=== PATIENT | female | born 1960 | race Caucasian/White ===

== ENCOUNTER 2016-03-31 08:14 | Inpatient (IN) | payer OTHER ==
[~2016-03-31] VITALS: Ht 160 cm; Wt 69.2 kg
[~2016-03-31 08:14] MED LIST: ASPIRIN81 M2 PO; MULTIPLE VITAM1 EACH PO; NEXIUM 24HR20 M1 PO; NEXIUM20 MG PO; ZOLOFT50 MG PO
[2016-03-31 09:17] VITALS: BP 124/80
[2016-03-31 14:52] LABS: HEMATOCRIT 38.4 % (36.0-46.0); MCH 32.6 PG (29.0-34.0); MCHC 33.3 G/DL (30.0-36.0); MCV 97.7 FL (83-99); MEAN PLAT.VOLUME 11.3 uM^3 (9.5-12.4); PLATELET COUNT 79 K/uL (156-360); RBC DIS.WIDTH-CV 14.4 % (11.8-14.6); RBC DIS.WIDTH-SD 51.3 % (39-53); RED BLOOD COUNT 3.93 M/uL (3.80-5.20); WHITE BLOOD COUNT 6.4 K/uL (4.1-10.2)
[2016-03-31 16:05] VITALS: BP 120/70
[2016-03-31 16:45] VITALS: BP 129/70
[2016-03-31 19:00] VITALS: BP 159/71
[2016-04-01] VITALS: BP 149/71
[2016-04-01 04:00] VITALS: BP 137/72
[2016-04-01 06:53] LABS: HEMATOCRIT 39.1 % (36.0-46.0); MCV 98.7 FL (83-99)
[2016-04-01 07:17] LABS: ANION GAP 10 MEQ/L (2-14); CHLORIDE 108 MEQ/L (99-109); GFR ESTIMATE (CALCULATED) > 59 mL/min/; GLUCOSE 145 mg/dL (70-99); POTASSIUM 4.2 MEQ/L (3.7-5.4); SAMPLE HEMOLYSIS CHECK 0; SAMPLE ICTERIC CHECK 0; SAMPLE LIPEMIA CHECK 0; SODIUM 138 MEQ/L (136-147); UREA NITROGEN (BUN) 13 mg/dL (9-23)
[2016-04-01 08:00] VITALS: BP 114/58
[2016-04-01] MEDS ORDERED: LOVENOX40 MG/0.4 SC (08:09)
[2016-04-01] MEDS ORDERED: ENDOCET 5-3251 EACH PO (08:09)
[2016-04-01 12:00] VITALS: BP 139/62
[2016-04-01 16:00] VITALS: BP 151/67
[2016-04-01 20:00] VITALS: BP 145/70
[2016-04-02 00:38] VITALS: BP 167/77
[2016-04-02 03:50] VITALS: BP 147/73
[2016-04-02 04:56] LABS: HEMATOCRIT 34.4 % (36.0-46.0); MCV 95.8 FL (83-99)
[2016-04-02 07:56] VITALS: BP 143/66
[2016-04-02 09:41] LABS: ALKALINE PHOSPHATASE 91 IU/L (3-129); ANION GAP 8 MEQ/L (2-14); CHLORIDE 100 MEQ/L (99-109); GFR ESTIMATE (CALCULATED) > 59 mL/min/; GLUCOSE 148 mg/dL (70-99); POTASSIUM 4.3 MEQ/L (3.7-5.4); SAMPLE HEMOLYSIS CHECK 0; SAMPLE ICTERIC CHECK 1; SAMPLE LIPEMIA CHECK 0; TOTAL BILIRUBIN 3.4 MG/DL (0.0-1.0); UREA NITROGEN (BUN) 14 mg/dL (9-23)
[2016-04-02 09:46] LABS: SODIUM 130 MEQ/L (136-147)
[2016-04-02 12:00] VITALS: BP 136/63
[2016-04-02 15:06] VITALS: BP 144/65
[2016-04-02 17:03] VITALS: BP 142/65
[2016-04-03 00:17] VITALS: BP 122/57
[2016-04-03 04:55] VITALS: BP 113/57
[2016-04-03 07:17] LABS: ALKALINE PHOSPHATASE 77 IU/L (3-129); ANION GAP 7 MEQ/L (2-14); CHLORIDE 107 MEQ/L (99-109); GFR ESTIMATE (CALCULATED) > 59 mL/min/; POTASSIUM 3.9 MEQ/L (3.7-5.4); SAMPLE HEMOLYSIS CHECK 0; SAMPLE ICTERIC CHECK 1; SAMPLE LIPEMIA CHECK 0; TOTAL BILIRUBIN 3.3 MG/DL (0.0-1.0); UREA NITROGEN (BUN) 10 mg/dL (9-23)
[2016-04-03 07:18] LABS: GLUCOSE 101 mg/dL (70-99); SODIUM 139 MEQ/L (136-147)
[2016-04-03 08:09] VITALS: BP 126/77
[2016-04-03 11:30] VITALS: BP 138/64
== END 2016-04-03 15:34 | disposition home or self-care (01) | DRG 470 ==
LOC: 2SOUTH 08:14 → 3WEST 16:27 → 2SOUTH 16:33 → 3WEST 04-02 09:35 → 3EAST 04-02 16:46
PROVIDERS: Orthopaedic Surgery; Physician Assistant
PROC: 0SRD0J9 Replacement of Left Knee Joint with Synthetic Substitute, Cemented, Open Approach (ICD-10-PCS; principal; 2016-03-31)
DX: M17.12 Unilateral primary osteoarthritis, left knee (principal); J44.9 Chronic obstructive pulmonary disease, unspecified; D69.6 Thrombocytopenia, unspecified; E55.9 Vitamin D deficiency, unspecified; K21.9 Gastro-esophageal reflux disease without esophagitis; I10 Essential (primary) hypertension; E78.5 Hyperlipidemia, unspecified; K74.60 Unspecified cirrhosis of liver; F32.9 Major depressive disorder, single episode, unspecified; Z79.82 Long term (current) use of aspirin; Z86.79 Personal history of other diseases of the circulatory system; Z88.1 Allergy status to other antibiotic agents; Z88.5 Allergy status to narcotic agent; Z87.891 Personal history of nicotine dependence
CPT/HCPCS: 73560; 80048; 80053; 85014; 85018; 85027; 85049; 94799; 97530 GO; 97530 GP; J0690; J1170; J1650; J2250; J2405; J3010; J7050